=== PATIENT | female | born 1995 | race African-American/Black ===

== ENCOUNTER 2019-12-25 05:28 | Emergency (ER) | payer OTHER, SELFPAY ==
[2019-12-25 05:33] VITALS: BP 99/55; PULSE 73; RESP 18; TEMP 36.6; O2SAT 100
--- NOTE | 2019-12-25 05:43 | ECG_ITS ---
Measurements Intervals Ward Rate: 61 P: 68 WY: 154 QRS: 76 QRSD: 80 T: 40 QT: 364 QTc: 369 Interpretive Statements SINUS RHYTHM BASELINE WANDER- V1-V6 NORMAL ECG Electronically Signed On 12-25-2019 7:39:14 CDT by Louis Turcios D.O.
--- NOTE | 2019-12-25 05:50 | ED.DIZZY ---
HPI - Dizziness General Chief Complaint: Dizziness Stated Complaint: dizziness Time Seen by Provider: 12/25/19 05:34 History of Present Illness HPI Narrative: Patient presents with dizziness, nausea, and not feeling well. She reported to work at 4 AM at the [employer], and said it was very hot. They took her blood pressure, which was normal, and sent her here. She has an IUD for control. She has never had surgery. She does not smoke cigarettes, she drinks a large amount of alcohol, and smokes marijuana. She last drank alcohol 2 nights ago. MD elicited complaint: dizziness and lightheadedness Related Data Home Medications Medication Instructions Recorded Confirmed No Home Medications 12/25/19 12/25/19 Allergies Allergy/AdvReac Type Severity Reaction Status Date / Time No Known Allergies Allergy Verified 12/25/19 05:43 Review of Systems Review of Systems: Narrative: CONSTITUTIONAL: Denies fever, chills, or sweats. EYES: Denies visual changes, redness, or discharge. ENT: Denies rhinorrhea, congestion, sore throat, or otalgia. CARDIOVASCULAR: Denies chest pain, palpitations, or edema. RESPIRATORY: Denies cough or dyspnea. GASTROINTESTINAL: Denies abdominal pain, nausea, vomiting, or diarrhea. GENITOURINARY: Denies dysuria or hematuria. SKIN: Denies rash or itching. MUSCULOSKELETAL: Denies back pain, joint pain, or myalgia. NEUROLOGIC: Denies headache, numbness, or weakness. . PMFSH Past Medical History Medical History Excessive drinking alcohol Surgical History Surgical History (Updated 12/25/19 @ 05:53 by Kristi Kendrick MD) No pertinent past surgical history Social History Social History (Updated 12/25/19 @ 05:53 by Kristi Kendrick MD) Smoking status: Never smoker Alcohol intake: current Substance use: current Substance use type: marijuana Exam Narrative: Exam Narrative: GENERAL: Well-appearing, well-nourished, and in no acute distress. Tattoos HEAD: Normocephalic, atraumatic. EYES: PERRLA and EOMI. ENT: Nares clear, no rhinorrhea or epistaxis. Mucous membranes moist. NECK: Supple. CHEST: Clear to auscultation. No respiratory distress. HEART: Regular rate and rhythm. No murmur heard. Normal peripheral pulses. ABDOMEN: Soft, nontender, nondistended, normal active bowel sounds. EXTREMITIES: Normal range of motion. No edema. SKIN: Warm, dry, no rash. NEURO: No focal deficits. Alert and oriented x3. PSYCH: Normal mood and affect. Course Reevaluation(s) Reevaluation #1: Went back into check her at 6:40 AM. She is feeling entirely better with the IV fluids. Offered her the day off of work so she could stay inside and stay cool. She accepts. Date: 12/25/19 Time: 06:44 Vital Signs Vital signs: Vital Signs Temperature 97.8 F 12/25/19 05:33 Pulse Rate 73 12/25/19 05:33 Respiratory Rate 18 12/25/19 05:33 Blood Pressure 99/55 L 12/25/19 05:33 Pulse Oximetry 100 12/25/19 05:33 Temperature 97.8 F 12/25/19 05:33 Pulse Rate 75 12/25/19 06:08 Respiratory Rate 16 12/25/19 06:08 Blood Pressure 110/74 12/25/19 06:08 Pulse Oximetry 96 12/25/19 06:08 MDM - Dizziness Medical Records Attestation: I reviewed the patient's medical records. Lab Data Attestation: I reviewed the patient's lab results. Result diagrams: 12/25/19 05:53 12/25/19 05:53 Labs: Lab Results 12/25/19 12/25/19 12/25/19 Range/Units 05:53 05:53 05:53 WBC 5.8 (4.5-10.0) K/mm3 RBC 4.76 (4.2-5.4) M/mm3 Hgb 12.4 (12.0-15.0) g/dL Hct 39.1 (37.0-47.0) % MCV 82.1 (80-100) fl MCH 26.1 (26-34) pg MCHC 31.7 L (32-36) g/dl RDW 14.9 H (11.5-14.5) % Plt Count 231 (150-375) k/mm3 MPV 11.4 H (7.4-10.4) fl Immature Gran % (Auto) 0.2 (0-0.5) % Neut % (Auto) 37.8 L (45.5-73.1) % Lymph % (Auto) 48.0 H (18.3-44.2) % [place] % (Auto) 11.3 H (2.6-8.5) % Eos % (Auto) 2.2 (0-4.4) %
[2019-12-25] MEDS: METOCLOPRAMIDE HCL INJ 10 MG/2 ML VIAL IV PUSH (06:01)
[2019-12-25] MEDS: SODIUM CHLORIDE 0.9% IV 1,000 ML 999 ML IV CONT (06:02)
[2019-12-25] MEDS: ACETAMINOPHEN 325 MG TABLET 650 MG PO (06:02)
[2019-12-25 06:08] VITALS: BP 110/74; PULSE 75; RESP 16; O2SAT 96
[2019-12-25 06:10] LABS: Basophils Percent Auto 0.5 % (0.2-1.2); Eosinophils Absolute Auto 0.1 K/mm3 (0-0.3); Eosinophils Percent Auto 2.2 % (0-4.4); Hematocrit 39.1 % (37.0-47.0); Hemoglobin 12.4 g/dL (12.0-15.0); Immature Granulocyte Absolute 0.01 K/mm3 (0.00-0.031); Immature Granulocyte Percent A 0.2 % (0-0.5); Mean Corpuscular HGB Conc 31.7 g/dl (32-36); Mean Corpuscular Hemoglobin 26.1 pg (26-34); Mean Corpuscular Volume 82.1 fl (80-100); Mean Platelet Volume 11.4 fl (7.4-10.4); Monocytes Absolute Auto 0.7 K/mm3 (0.1-0.6); Monocytes Percent Auto 11.3 % (2.6-8.5); Neutrophils Absolute Auto 2.2 K/mm3 (1.3-6.7); Neutrophils Percent Auto 37.8 % (45.5-73.1); Platelet Count Result 231 k/mm3 (150-375); Red Blood Count 4.76 M/mm3 (4.2-5.4); Red Cell Distribution Width 14.9 % (11.5-14.5); White Blood Count 5.8 K/mm3 (4.5-10.0)
[2019-12-25 06:13] LABS: Add Urine Microscopic? YES; Appearance Urine Clear (Clear); Bilirubin Urine Negative (Negative); Blood Urine 2+ (Negative); Color Urine Yellow (Yellow); Glucose Urine UA Negative (Negative); Ketones Urine Negative (Negative); Leukocyte Esterase Ur Trace LEU/UL (Negative); Mucus Urine Rare /lpf; Nitrate Urine Negative (Negative); Protein Urine Negative (Negative); Specific Grav Ur 1.021 (1.001-1.035); Squamous Epithelial Cell Urine Few /hpf (Few); Urobilinogen Urine Negative mg/dL (<2.0)
[2019-12-25 06:21] LABS: Alanine Aminotransferase 11 U/L (4-35); Albumin Level 4.4 g/dL (3.5-5.1); Alkaline Phosphatase 88 U/L (38-126); Aspartate Amino Transferase 21 U/L (14-36); Bilirubin,Total 0.1 mg/dL (0.2-1.3); Blood Urea Nitrogen 14 mg/dL (7-17); Calcium 9.1 mg/dL (8.4-10.2); Carbon Dioxide 25 mmol/L (22-30); Chloride 103 mmol/L (98-107); Estimated CRCL calculation 92 ml/min; Estimated Glomerular Filt Rate > 60; Ethanol < 10 mg/dL (<10); Glucose 94 mg/dL (65-105); Potassium 4.1 mmol/L (3.4-5.0); Sodium 137 mmol/L (137-145)
--- NOTE | 2019-12-25 06:27 | PC.NURSE ---
this rn asked pt if she was still nauseated, pt states she just doesn't feel good.
--- NOTE | 2019-12-25 06:48 | PC.NURSE ---
pt states she is no longer nauseated and headache is gone. md notified.
[2019-12-25 07:01] VITALS: BP 114/94; PULSE 65; RESP 18; O2SAT 100
--- NOTE | 2019-12-30 22:30 | PC.NURSE ---
LATE ENTRY pt IV fluids stopped prior to d/c. This note is being entered to document information to the patient's record. The following information was omitted on [12/30/2019], by [aleksandr nolasco].
== END 2019-12-25 07:03 | disposition home or self-care (01) ==
PROVIDERS: Emergency Provider Emergency Medicine
DX: T67.9XXA Effect of heat and light, unspecified, initial encounter (principal); R42 Dizziness and giddiness; Z97.5 Presence of (intrauterine) contraceptive device
CPT/HCPCS: 36415; 80053; 80307; 81001; 81025; 85025; 87086; 87088; 93005; 96361; 96374; 99284; A9270; J2765; J7030